=== PATIENT | male | born 1965 | race Caucasian/White ===

== ENCOUNTER 2018-05-24 06:17 | Outpatient (CLI) | payer OTHER ==
[~2018-05-24] VITALS: Ht 182.9 cm; Wt 115.5 kg
--- NOTE | ~2018-05-24 | CN ---
PATIENT NAME:POONAM MCNULTY MEDICAL RECORD: [id number] : 61 LOCATION:D.CAT ADMIT DATE: ACCOUNT: [id number] CONSULTING PHYSICIAN: SEKOU MUÑOZ MD REFERRING PHYSICIAN: SEKOU MUÑOZ MD DATE OF CONSULTATION: 05/24/2018 DIAGNOSES: 1. Unstable angina. 2. Family history of coronary artery disease. HISTORY OF PRESENT ILLNESS: This is a gentleman with no previous cardiac history who presents with increasing episodes of chest discomfort, very typical for angina, dull aching sensation anterior chest radiating to his jaw down his arm. This has been especially worse this morning. PHYSICAL EXAMINATION: GENERAL APPEARANCE: Well-nourished, well-developed, appears stated age. Level of distress, comfortable. PSYCHIATRIC: Mental status, alert, normal affect. Orientation, oriented to time, place and person. EYES: Lids and conjunctiva, noninjected. No discharge, no pallor. ENT: Lips, teeth, gums, normal dentition. Oropharynx, no cyanosis, no pallor. NECK: Carotid arteries, bilateral normal upstroke, no bruits, no thrills. JUGULAR VEINS: No jugular venous pressure or distention. CERVICAL LYMPH NODES: Nontender, nonenlarged. THYROID: Not enlarged. Nontender. No nodules. LUNGS: Respiratory effort, unlabored. CHEST: Normal curvature. No thoracic deformity. No chest wall tenderness. Percussion, resonant. Auscultation, clear. No wheezes, no rales, no rhonchi. CARDIOVASCULAR: Precordial exam, nondisplaced. No heaves or pericardial thrills. Rate and rhythm, regular. Heart sounds, normal S1, normal S2. No S3, no gallop, no rub. Systolic murmur, not heard. Diastolic murmur, not heard. EXTREMITIES: No cyanosis, no edema. Peripheral pulses, full and equal in all extremities, except as noted. No bruits appreciated. ABDOMEN: Soft, nondistended. Normal aorta. No bruit. Nontender. No masses. Liver, nontender, no hepatomegaly. Spleen, nontender, no splenomegaly. MUSCULOSKELETAL: No joint tenderness. No joint swelling. No erythema. NEUROLOGICAL: Normal gait, normal strength, normal tone. SKIN: Warm and dry. OVERALL IMPRESSION: Chest pain, very compatible with angina with very strong family history of coronary artery disease, most likely is hemodynamically significant coronary artery disease. We will proceed with coronary angiography. Further care depends upon findings of the angiography. TRANSINT:[id number] Voice Confirmation ID: [id number] DOCUMENT ID: [id number] CONSULT REPORT [id number] POONAM MCNULTY, SEKOU COLE at 0924 CC: [id number] DICTATION DATE: 05/24/18909 DOUGH MOLDER HAND: 05/24/18 0947 DEP CLI 05/25/[address] [address]
--- NOTE | ~2018-05-24 | HEMODYNAMI ---
PATIENT:POONAM MCNULTY MEDICAL RECORD: [id number] : 61 LOCATION:DRADHA ADMISSION DATE: 05/24/18 Generatedon:05/24/201812:16 Patient name: POONAM MCNULTY Patient #: [id number] SSN: DO B: 1965 Date of study: 05/24/2018 Page: Of Hemodynamic Procedure Report Patient Data Patient Demographics Procedure consent was obtained First Name: POONAM Gender: Male Last Name: PRICILA : 1965 [facility] Initial: TOÑITO Age: 52 year(s) Patient #: [id number] Race: Unknown Additional ID: [id number] Contact details Address: [address] [place] [address] [facility] [address] State: [place] City: [facility] Zip code: [address] Past Medical History Allergies: No known allergies Admission Admission Data Admission Date: 05/24/2018 Admission Time: 6:17 Lab Results Lab Result Date: 05/24/2018 Lab Result Time: 0:00 Biochemistry Name Units Result Min Max BUN mg/dl 20 --(----)*- 7 18 Creatinine mg/dl 1.5 --(----)-* 0.6 1.3 CBC Name Units Result Min Max Hemoglobin g/dl 14 --(*---)-- 13.5 17.5 Procedure Procedure Types Cath Procedure Diagnostic Procedure [facility] w/Coronaries PCI Procedure Coronary Stent Coronary Stent Initial Coronary Stent Additional Procedure Description Procedure Date Procedure Date: 05/24/2018 Procedure Start Time: 11:37 Procedure End Time: 12:13 Procedure Staff Name Function Lito Irwin MD Performing Physician Nick Mills RT Monitor Julisa Alejandre RT Scrub Mason Pineda RN Nurse Laurence Botello RN Nurse Logan Gamble RN Nurse Danielito Villanueva RT Insurance Marketing Specialist Procedure Data Cath Procedure Fluoroscopy Diagnostic fluoroscopy Total fluoroscopy Time: time: 12.8 min 12.8 min Diagnostic fluoroscopy Total fluoroscopy dose: dose: 1565 mGy 1565 mGy Contrast Material Contrast Material Type Amount (ml) Isovue 300 226 Entry Location Entry Primary Successful Side Size Upsize Upsize Entry Closure Kaur ccessful Closure Location (Fr) 1 (Fr) 2 (Fr) Remarks Device Remarks Radial Right 6 Fr Mechanical artery Short Compression Estimated blood loss: 10 ml Diagnostic catheters Device Type Used For End Catheter Placement DIAGNOSTIC Dunnegan 110cm 5 Procedure Fr catheter ([id number]) Procedure Complications No complications Procedure Medications Medication Administration Route Dosage Oxygen etCO2 Nasal cannula 2 l/min Lidocaine 2% added to field 20 Heparin Flush Bag added to field 2 bags (1000units/500ml NS) 0.9% NaCl I.V. 100 ml/hr Versed I.V. 2 mg Fentanyl I.V. 100 mcg Radial Cocktail added to field 1 syringe (Verapomil 2mg/Nitro 400mcg/Heparin 1500units) Heparin Bolus I.V. 4000 units Fentanyl I.V. 50 mcg Versed I.V. 1 mg Nitroglycerin IC/IA I.C. 200 mcg 0.9% NaCl I.V. 300 Hemodynamics Rest HGB: 14 (g/dl) Heart Rate: 0 (bpm) Snapshots Pre Cath Intra NCS Post Cath Vital Signs Time Heart Resp SPO2 etCO2 NIBP (mmHg) Rhythm Pain Sedation Rate (ipm) (%) (mmHg) Status Level (bpm) 11:14:31 76 16 100 32.1 143/99(126) NSR 0 (11) 10(A) , No pain 11:18:51 76 13 100 30.6 140/87(118) NSR 0 (11) 10(A) , No pain 11:23:07 72 19 100 25 135/88(120) NSR 0 (11) 10(A) , No pain 11:27:25 74 13 99 30 141/70(111) NSR 0 (11) 10(A) , No pain 11:31:37 77 15 98 30 127/76(121) NSR 0 (11) 10(A) , No pain 11:35:51 73 15 100 35.8 139/89(124) NSR 0 (11) 10(A) , No pain 11:39:49 70 17 97 37 106/86(101) NSR 0 (11) 10(A) , No pain 11:44:05 71 10 98 34.3 81/55(72) NSR 0 (11) 9(A) , No pain 11:48:58 73 12 99 35 128/70(81) NSR 0 (11) 9(A) , No pain 11:53:14 76 11 97 38.8 115/71(93) NSR 0 (11) 9(A) , No pain 11:57:30 73 12 97 38.8 121/66(102) NSR 0 (11) 9(A) , No pain 12:01:46 74 13 96 37.3 98/52(72) NSR 0 (11) 9(A) , No pain 12:05:52 75 14 96 38 104/68(82) NSR 0 (11) 9(A) , No pain 12:09:59 75 11 97 38.8 120/76(102) NSR 0 (11) 10(A) , No pain 12:14:24 11.2 No Cuff NSR 0 (11) 10(A) , No pain Medications Time Medication Route Dose Verified Delivered Reason Not es Effectiveness by by 11:33:33 Oxygen etCO2 2 l/min Lito Buffie used for Nasal Dc Gamble RN procedure cannula 11:33:40 Lidocaine 2% added 20ml Litojuwan Morse for local to vial Dc Irwin MD anesthetic field 11:34:26 Heparin Flush added 2 bags Lito Morse used for Bag to Dc Irwin MD procedure (1000units/500ml field NS) 11:34:35 0.9% NaCl I.V. 100 Lito Buffie Per physician ml/hr Dc Gamble RN 11:37:34 Versed I.V. 2 mg Lito Patinoie for sedation Dc Gamble RN 11:37:40 Fentanyl I.V. 100 mcg Lito Patinoie for sedation Dc Gamble RN 11:37:55 Radial Cocktail added 1 Lito Lito used for (Verapomil to syringe Dc Irwin MD procedure 2mg/Nitro field 400mcg/Heparin 1500units) 11:42:35 Fentanyl I.V. 50 mcg Lito Patinoie for sedation Dc Gamble RN 11:43:00 Heparin Bolus I.V. 4000 Lito Ford for units Dc Gamble RN anticoagulation 11:43:03 Versed I.V. 1 mg Lito Buffie for sedation Dc Gamble RN 11:59:07 Nitroglycerin I.C. 200 mcg Lito Morse for IC/IA Dc Irwin MD vasodilation 12:10:24 0.9% NaCl I.V. 300 Lito Morse Per physician ml/hr x Dc Irwin MD 4hrs Procedure Log Time Note 10:55:54 Nick Mills RT(R) sent for patient. Start room use. 10:55:55 Time tracking: Regular hours (M-F 7:00 - 5:00) 10:55:59 Plan of Care:Hemodynamics will remain stable., Cardiac rhythm will remain stable., Comfort level will be maintained., Respiratory function will remain adequate., Patient/ family verbilizes understanding of procedure., Procedure tolerated without complication., Recovers from procedure without complications.. 10:56:01 Diagnostic Cath status Elective 10:56:02 Signed procedure consent form obtained from patient. 10:56:05 H&P Date Dictated: 05/24/2018 ER History on chart.. 10:56:16 Patient allergic to No known allergies 10:57:32 Lab Result : BUN 20 mg/dl 10:57:32 Lab Result : Hemoglobin 14 g/dl 10:57:32 Lab Result : Creatinine 1.5 mg/dl 11:06:20 Patient received from ED to CCL 1 Alert and oriented. Tansferred to table in Supine position. 11:06:22 Warm blankets applied, and yoana hugger turned on for patient comfort. 11:06:23 Correct patient and procedure confirmed by team. 11:06:25 ECG and BP/O2 sat monitors applied to patient. 11:13:17 Vital chart was started 11:13:19 Baseline sample Acquired. 11:13:52 Baseline sample Acquired. 11:13:56 Rhythm: sinus rhythm 11:13:57 Full Disclosure recording started 11:13:58 Pre-procedure instructions explained to patient. 11:13:59 Pre-op teaching completed and patient verbalized understanding. 11:14:01 Family unavailable. 11:14:02 Patient NPO since Midnight. 11:14:05 Is the patient allergic to Iodine/contrast media? No. 11:19:42 Patient diabetic? No. 11:19:48 Is patient on blood thinner?Yes 11:20:10 Plavix loaded in ER. 11:20:14 Previous problem with sedation/anesthesia? No ? 11:20:15 Snore? Yes 11:20:16 Sleep apnea? No 11:20:17 Deviated septum? No 11:20:18 Opens mouth fully? Yes 11:20:19 Sticks out tongue? Yes 11:20:20 Airway obstruction? No ? 11:20:23 Dentures? No ? 11:20:25 Pre procedure: right dorsailis pedis pulse 1+ Palpable, but thready & weak; easily obliterated 11:20:29 Modified Suleiman's test Ulnar < 7 seconds 11:20:30 Patient pain scale 0/10 ?. 11:20:36 IV patent on arrival in left forearm with 0.9% NaCl at [facility]. 11:20:38 Lab results completed and on chart. 11:21:20 Right Radial & Right Groin area was prepped with chlora-prep and draped in sterile fashion 11:21:21 Alarms reviewed by R. N. 11:21:22 Sharps counted by scrub and verified by R.N. 11:25:25 Use device set Radial Dx or PCI 11:25:29 Tegaderm 4 x 4 (1626W) opened to sterile field. 11:25:31 ACIST Manifold (69124) opened to sterile field. 11:25:31 ACIST Hand Control (08912) opened to sterile field. 11:25:33 ACIST Syringe (01753) opened to sterile field. 11:25:33 Medline Cath Pack ([id number]) opened to sterile field. 11:25:34 Bag Decanter () opened to sterile field. 11:25:34 DIAGNOSTIC WIRE .035 260cm J wire (424462) opened to sterile field. 11:25:34 MBrace Wrist Support ([id number]) opened to sterile field. 11:25:37 SHEATH 6Fr Prelude Radial ([id number]) opened to sterile field. 11:33:33 Oxygen 2 l/min etCO2 Nasal cannula was administered by Logan Gamble RN; used for procedure; 11:33:40 Lidocaine 2% 20ml vial added to field was administered by Lito Irwin MD; for local anesthetic; 11:34:26 Heparin Flush Bag (1000units/500ml NS) 2 bags added to field was administered by Lito Irwin MD; used for procedure; 11:34:35 0.9% NaCl 100 ml/hr I.V. was administered by Logan Gamble RN; Per physician; ::54 --------ALL STOP TIME OUT------ ::55 Final Timeout: patient, procedure, and site verified with staff and physician. All members of the team are in agreement. 11:35:00 Right Radial & Right Groin site verified by team. 11:35:03 Physical assessment completed. ASA score P 2 - A patient with mild systemic disease as per Lito Irwin MD. 11:35:06 Sedation plan: IV Moderate Sedation Medication:Versed, Fentanyl 11:36:57 Procedure started. 11:37:31 Local anesthetic to right radial artery with Lidocaine 2% by Lito Irwin MD.INITIAL ACCESS ONLY 11:37:34 Versed 2 mg I.V. was administered by Logan Gamble RN; for sedation; 11:37:40 Fentanyl 100 mcg I.V. was administered by Logan Gamble RN; for sedation; :37:55 Radial Cocktail (Verapomil 2mg/Nitro 400mcg/Heparin 1500units) 1 syringe added to field was administered by Lito Irwin MD; used for procedure; 11:38:01 A 6 Fr Short sheath was inserted into the Right Radial artery 11:39:26 A DIAGNOSTIC Dunnegan 110cm 5 Fr catheter ([id number]) was advanced over the wire and used for Procedure. 11:39:36 LV angiography performed. 11:39:37 LV gram done using JORDAN 11:39:43 EF : 60 % 11:39:47 Injector settings: Ml/sec: 7, Volume: 15, 11:40:28 LCA angiography performed. 11:40:52 RCA angiography performed. 11:41:03 Use device set TAU PCI 11:41:13 INFLATOR Merit BasixCompak (PQ0426) opened to sterile field. 11:41:16 CHOICE PT Extra Support 182cm wire ([id number]) opened to sterile field. 11:42:18 GUIDE 6FR XBLAD 3.5 catheter ([id number]) opened to sterile field. 11:42:26 Catheter exchanged over wire. 11:42:33 6 Fr XBLAD 3.5 guide catheter was inserted over the wire 11:42:35 Fentanyl 50 mcg I.V. was administered by Logan Gamble RN; for sedation; 11:43:00 Heparin Bolus 4000 units I.V. was administered by Logan Gamble RN; for anticoagulation; 11:43:03 Versed 1 mg I.V. was administered by Logan Gamble RN; for sedation; 11:43:28 Guide Catheter removed. unable to cannulate vessel. 11:43:40 GUIDE 6FR EBU 3.0 catheter ([id number]) opened to sterile field. 11:43:51 6 Fr EBU 3 guide catheter was inserted over the wire 11:45:29 CPTXS wire advanced. 11:46:02 Wire advanced across lesion. 11:48:44 Inflate balloon Inflation number: 1 A EUPHORA 2.5 x 15 Balloon ([id number]) was prepped and advanced across the Mid LAD, then inflated to 15 SKY for 0:10 (min:sec). 11:49:30 Balloon removed over the wire. 11:50:46 Place stent Inflation Number: 2 A MALIKA RX 3.0 x 38 stent ([id number]) was prepped and advanced across the Mid LAD. The stent was deployed at 17 SKY for 0:10 (min:sec). 11:50:51 Stent catheter was removed intact over wire. 11:51:58 Place stent Inflation Number: 3 A MALIKA RX 2.5 x 15 stent ([id number]) was prepped and advanced across the Mid LAD. The stent was deployed at 15 SKY for 0:10 (min:sec). 11:53:00 Stent catheter was removed intact over wire. 11:53:33 Unable to wire Diag. Wire removed damage. New CPTXS wire advanced. 11:53:42 CHOICE PT Extra Support 182cm wire ([id number]) opened to sterile field. 11:53:55 Wire advanced down the Diag. 11:54:37 Inflation number: 1 The EUPHORA 2.5 x 15 Balloon ([id number]) was reinflated across the 1st Diag, to 11 SKY for 0:10 (min:sec). 11:55:11 Multiple inflations made at 13 Atms. 11:55:45 Wire redirected to LAD. 11:56:02 Balloon removed over the wire. 11:57:21 Place stent Inflation Number: 4 A MALIKA RX 2.5 x 15 stent ([id number]) was prepped and advanced across the Mid LAD. The stent was deployed at 11 SKY for 0:10 (min:sec). 11:57:31 Stent catheter was removed intact over wire. 11:59:07 Nitroglycerin IC/IA 200 mcg I.C. was administered by Lito Irwin MD; for vasodilation; 12:03:24 Place stent Inflation Number: 1 A MALIKA RX 2.25 x 22 stent ([id number]) was prepped and advanced across the Dist LAD. The stent was deployed at 11 SKY for 0:10 (min:sec). 12:04:13 Stent catheter was removed intact over wire. 12:05:10 CHOICE PT Extra Support 182cm wire ([id number]) opened to sterile field. 12:05:22 Wire removed. 12:05:43 New CPTXS wire advanced in attempt to wire Diag. 12:09:02 Wire advanced down the Diag. 12:09:24 Place stent Inflation Number: 2 A MALIKA RX 2.25 x 12 stent ([id number]) was prepped and advanced across the 1st Diag. The stent was deployed at 13 SKY for 0:10 (min:sec). 12:10:16 TR BAND Standard ([id number]) opened to sterile field. 12:10:24 0.9% NaCl 300 ml/hr x 4hrs I.V. was administered by Lito Irwin MD; Per physician; 12:10:24 Stent catheter was removed intact over wire. 12:10:26 Wire removed. 12:10:27 Guide catheter removed. 12:10:42 Sheath removed intact; hemostasis achieved with Mechanical Compression to the Right Radial artery. 12:10:44 Procedure ended.(Physican Out) 12:12:00 Fluoroscopy time 12.80 minutes. 12:12:04 Fluoroscopy dose: 1565 mGy 12:12:04 Flurop Dose total: 1565 12:12:09 Contrast amount:Isovue 300 226ml. 12:12:10 Sharps counted by scrub and verified by R.N. 12:12:12 TR band inflated with 12cc of air. 12:12:14 Insertion/operative site no bleeding no hematoma. 12:12:16 Post Procedure Pulses reassessed and unchanged 12:12:18 Post-procedure physical assessment completed. ASA score P 2 - A patient with mild systemic disease as per Lito Irwin MD. 12:12:21 Post procedure rhythm: unchanged. 12:12:24 Estimated blood loss: 10 ml 12:12:26 Post procedure instruction explained to patient.Patient verbalizes understanding. 12:12:26 Patient needs reinforcement of post procedure teaching. 12:12:33 Procedure type changed to Cath procedure, Diagnostic procedure, LHC, LHC w/Coronaries, PCI procedure, Coronary Stent, Coronary Stent Initial, Coronary Stent Additional 12:13:17 Procedure and supply charges have been captured, reviewed, submitted and are correct. 12:13: Procedure Complication : No complications 12:13:31 Vital chart was stopped 12:13: See physician's report for complete and final results. 12:13:34 Report given to PCU. 12:13:39 Patient transfered to PCU with Bed. 12:13:41 Procedure ended. 12:13:41 Full Disclosure recording stopped 12:16:03 End room use (Document Last) Intervention Summary Intervention Notes Time ActionType Lesion and Equipment Used Action# Pressure Duration Attributes 11:48:44 Inflate Mid LAD EUPHORA 2.5 x 1 15 00:10 balloon 15 Balloon ([id number]) 11:50:46 Place stent Mid LAD MALIKA RX 3.0 x 2 17 00:10 38 stent ([id number]) 11:51:58 Place stent Mid LAD MALIKA RX 2.5 x 3 15 00:10 15 stent ([id number]) 11:54:37 Reinflate 1st Diag EUPHORA 2.5 x 1 11 00:10 balloon 15 Balloon ([id number]) 11:57:21 Place stent Mid LAD MALIKA RX 2.5 x 4 11 00:10 15 stent ([id number]) 12:03:24 Place stent Dist LAD MALIKA RX 2.25 x 1 11 00:10 22 stent ([id number]) 12:09:24 Place stent 1st Diag MALIKA RX 2.25 x 2 13 00:10 12 stent ([id number]) Device Usage Item Name Manufacture Quantity Catalog Number Hospital Part Current Minimal Lot# / Charge Number Stock Stock Serial# Code Tegaderm 4 x 4 3M 1 1626W 208428 124073 430622 5 (1626W) ACIST Manifold Acist 1 61739 476106 886370 917598 5 (96226) Medical [employer] Inc ACIST Hand Acist 1 72412 748838 588621 671483 5 Control (30862) [employer] Inc ACIST Syringe Acist 1 79941 201418 623410 910887 20 (02342) Medical Systems Inc Medline Cath Cardinal 1 [id number] 854043 50082 499771 5 Pack Health ([id number]) Bag Decanter Microtek 1 2001S 012475 81007 753458 5 (2001S) Medical Inc. DIAGNOSTIC WIRE St Toni 1 901789 696144 454967 661042 30 .035 260cm J wire (634953) MBrace Wrist Advanced 1 140-0250-00 009094 25046 665306 5 Support Vascular (263611847) Dynamics SHEATH 6Fr Merit 1 [id number] 553361 139246 006213 5 Prelude Radial Medical ([id number]) DIAGNOSTIC Terumo 1 40-1753 069987 254151 280685 5 Dunnegan 110cm 5 Fr catheter (793274) INFLATOR Merit Merit 1 XV0150 469082 194885 531757 15 Tujia (SY6256) CHOICE PT Extra [place] 3 [id number] 568462 465731 262799 5 Support 182cm Scientific wire (0739824W3) GUIDE 6FR XBLAD Cardinal 1 76416441 767780 936173 339847 10 3.5 catheter Health (80010427) GUIDE 6FR EBU Medtronic 1 [id number] 564146 89856 808817 0 3.0 catheter ([id number]) EUPHORA 2.5 x Medtronic 1 [id number] 634735 214708 453207 5 [id number] 15 Balloon (JJR6880D) MALIKA RX 3.0 x Medtronic 1 [id number] 909124 7261871 144696 5 [id number] 38 stent ([id number]) MALIKA RX 2.5 x Medtronic 2 [id number] 252438 2449115 426678 5 [id number] 15 stent [id number] ([id number]) MALIKA RX 2.25 x Medtronic 1 [id number] 567954 5093138 915921 5 [id number] 22 stent ([id number]) MALIKA RX 2.25 x Medtronic 1 [id number] 831141 9234220 905715 5 [id number] 12 stent ([id number]) TR BAND Terumo 1 QTH38-[id number] 935933 454320 515042 40 Standard ([id number]) Signature Audit [place] Stage Time Signature Unsigned Intra-Procedure 05/24/2018 Nick Mills 12:16:14 PM RT(R) Signatures Monitor : Nick Mills RT Signature : Date : Time : [address] [address]
--- NOTE | ~2018-05-24 | DS ---
PATIENT:POONAM MCNULTY :61 MEDICAL RECORD: [id number] DISCHARGE SUMMARY ADMISSION DATE: 05/24/18 DISCHARGE DATE: 05/25/18 DISCHARGE DIAGNOSES: 1. Unstable angina. 2. Coronary artery disease. 3. Percutaneous transluminal coronary angioplasty and stent to the left anterior descending this admission. HOSPITAL COURSE: This is a gentleman who presents with unstable anginal symptomatology, found to have significant disease to the LAD, underwent successful PTCA and stent of the LAD and LAD diagonal, discharged home with the addition of aspirin, Plavix, and Pravachol to his medical regimen. We will follow up with [facility] in 1 month. TRANSINT:[id number] Voice Confirmation ID: [id number] DOCUMENT ID: [id number] SEKOU MUÑOZ MD at 0924 CC: [id number] DICTATION DATE: 05/25/18 0850 BODY TECHNICIAN/PAINTER: 05/25/18 2117 DEP CLI 05/25/18 [id number] [place] [address]
[2018-05-24] MEDS ORDERED: TRIAM PO (06:21)
[2018-05-24] MEDS ORDERED: HCTZ PO (06:21)
[2018-05-24] MEDS ORDERED: propanolol (06:21)
[2018-05-24 06:47] LABS: BASOPHILS 0.3 % (0-2); EOSINOPHILS 4.7 % (0-7); HEMATOCRIT 41.8 % (42.0-54.0); IMMATURE GRANULOCYTES 0.1 % (0-5); LYMPHOCYTES 31.8 % (15-50); MCH 31.2 pg (26.0-34.0); MCHC 33.5 g/dL (31.0-37.0); MCV 93.1 fL (80.0-100.0); MEAN PLATELET VOLUME 10.1 fL (7.4-10.4); MONOCYTES 13.8 % (2-11); NEUTROPHILS 49.3 % (40-80); PLATELET COUNT 194 10x3/uL (130-400); RBC 4.49 10x6/uL (4.20-6.10); RDW 13.5 % (11.5-14.5); WBC 8.7 10x3/uL (4.8-10.8)
[2018-05-24 07:07] LABS: ALBUMIN 3.5 g/dL (3.4-5.0); ALKALINE PHOSPHATASE 56 U/L (46-116); ALT (SGPT) 29 U/L (10-68); BILIRUBIN - TOTAL 0.27 mg/dL (0.2-1.3); CALC OSMOLALITY 282 mosm/kg (275-300); CALCIUM 9.1 mg/dL (8.5-10.1); CARBON DIOXIDE 29.9 mmol/L (21.0-32.0); CHLORIDE - SERUM 102 mmol/L (98-107); CREATININE - SERUM 1.5 mg/dL (0.6-1.3); GLUCOSE 124 mg/dL (74-106); POTASSIUM - SERUM 4.1 mmol/L (3.5-5.1); PROTEIN - SERUM 7.6 g/dL (6.4-8.2); SODIUM 140 mmol/L (136-145); UREA NITROGEN 20 mg/dL (7-18); eGFR NON AFRICAN AMERICAN 52 mL/min (90-120)
[2018-05-24 07:10] LABS: CREATINE KINASE 148 UL (21-232)
[2018-05-24 07:12] LABS: TROPONIN-I < 0.017 ng/mL (0.000-0.060)
[2018-05-24] MEDS ORDERED: ULTRAM50 MG PO (13:04)
[2018-05-24 13:51] VITALS: BP 99/73; Ht 182.9 cm; Wt 115.5 kg
[2018-05-24 16:11] VITALS: BP 99/73
[2018-05-25] VITALS: BP 132/64
[2018-05-25 04:00] VITALS: BP 123/60
[2018-05-25 09:30] VITALS: BP 126/83
[2018-05-25] MEDS ORDERED: PROPRANOLOL HCL80 MG PO (09:52)
[2018-05-25] MEDS ORDERED: PRAVACHOL40 MG PO (09:54)
[2018-05-25] MEDS ORDERED: PLAVIX75 MG PO (09:54)
[2018-05-25] MEDS ORDERED: ASPIRIN81 MG PO (09:55)
== END 2018-05-25 13:04 | disposition home or self-care (01) ==
LOC: D.CATH 06:17 → D.ER 06:17 → EDSTATUS 09:50 → D.M2 12:46 → D.CATH 05-25 13:04
PROVIDERS: Family Medicine
DX: I25.110 Atherosclerotic heart disease of native coronary artery with unstable angina pectoris (principal); Z82.49 Family history of ischemic heart disease and other diseases of the circulatory system; Z01.812 Encounter for preprocedural laboratory examination